=== PATIENT | female | born 1985 | race Caucasian/White ===

== ENCOUNTER 2016-09-16 12:59 | Emergency (ER) | payer BC ==
[~2016-09-16] VITALS: Ht 157.5 cm; Wt 58.1 kg
[2016-09-16 13:00] VITALS: BP_SYST 128
--- NOTE | 2016-09-16 13:00 | NUR ---
Patient triaged and placed in waiting room. VSS and patient appears in no acute distress at this time. Accompanied by mother, awaiting available bed, and MD notified of need for MSE.
[2016-09-16] MEDS ORDERED: DEXAMETHASONE SOD PHOSPHATE 10 MG/ML VIAL IM ONE (13:15)
[2016-09-16] MEDS ORDERED: FAMOTIDINE 20 MG TABLET PO ONE (13:15)
--- NOTE | 2016-09-16 14:16 | NUR ---
Dr. Douglas evaluating pt in triage room.
--- NOTE | 2016-09-16 14:20 | NUR ---
Dr Douglas examined patient in [facility] room
--- NOTE | 2016-09-16 14:20 | NUR ---
Pt to bed 5
--- NOTE | 2016-09-16 14:24 | NUR ---
Patient in stable condition, alert and oriented x4. States has had rash all over body for five days along with upper abdominal pain for two weeks. States vomited 2x on monday. Denies any nausea since vomiting episodes. Denies diarrhea. Abdomen soft and non distended. No other complaints/injuries per patient or noted.
--- NOTE | 2016-09-16 14:26 | NUR ---
Scattered rash noted enitre body, appears to be small raised red bumps. Skin intact. Intermittent itchiness per patient.
[2016-09-16 14:37] LABS: BASOPHILS # (AUTO) 0.1 K/uL (0.0-0.2); BASOPHILS % (AUTO) 0.9 % (0.0-2.0); HEMATOCRIT 40.5 % (36-48); HEMOGLOBIN 13.5 g/dL (12.0-16.0); LYMPHOCYTES % (AUTO) 12.7 % (20.5-51.5); MEAN CORPUSCULAR HEMOGLOBIN 31 pg (27-31); MEAN CORPUSCULAR HGB CONC 33 % (32-36); MEAN CORPUSCULAR VOLUME 94 fL (79.0-98.0); MONOCYTES # (AUTO) 0.1 K/uL (0.0-1.0); MONOCYTES % (AUTO) 1.4 % (1.7-9.3); NEUTROPHILS # (AUTO) 6.9 K/uL (1.8-7.7); PLATELET COUNT (AUTO) 264 K/uL (130-430); RED BLOOD CELL COUNT(AUTO) 4.32 MIL/uL (4.2-6.2); RED CELL DISTRIBUTION WIDTH 12.8 % (9.0-15.0); WHITE BLOOD COUNT (AUTO) 8.1 K/uL (4.8-10.8)
[2016-09-16 14:55] LABS: CALCIUM 9.3 mg/dL (8.4-11.0); CREATININE 0.87 mg/dL (0.55-1.30)
[2016-09-16 15:00] LABS: ALBUMIN 4.3 g/dL (3.4-4.8); TOTAL BILIRUBIN 1.2 mg/dL (0.0-1.0); TOTAL PROTEIN, SERUM 8.3 g/dL (6.4-8.3)
[2016-09-16 15:27] VITALS: BP_SYST 128
--- NOTE | 2016-09-16 15:27 | NUR ---
Patient given written and verbal discharge instructions and verbalizes understanding. ER MD Douglas discussed with patient the results and treatment provided. Patient in stable condition. ID arm band removed. Rx of Claritin given. Patient educated on pain management and to follow up with PMD. Pain Scale 0/10. Opportunity for questions provided and answered.
== END 2016-09-16 15:27 | disposition home or self-care (01) ==
LOC: SED 12:59
DX: L50.9 Urticaria, unspecified (principal); R10.84 Generalized abdominal pain; R03.0 Elevated blood-pressure reading, without diagnosis of hypertension
CPT/HCPCS: 36415; 76700; 80053; 85025; 96372; 99285; J1100